=== PATIENT | male | born 1965 | race Caucasian/White ===

== ENCOUNTER 2023-12-24 07:57 | Emergency (ER) | payer MEDICARE ==
[~2023-12-24] VITALS: Ht 177.8 cm; Wt 95.0 kg
[2023-12-24 08:07] VITALS: BP 174/77; PULSE 71; RESP 18; TEMP 97.8; O2SAT 98
== END 2023-12-24 20:30 | disposition left against medical advice (07) ==
LOC: ER 07:58
DX: S00.81XA Abrasion of other part of head, initial encounter (principal); X58.XXXA Exposure to other specified factors, initial encounter; Y93.89 Activity, other specified; Y92.89 Other specified places as the place of occurrence of the external cause; Y99.8 Other external cause status

== ENCOUNTER 2024-04-15 10:58 | Inpatient (IN) | payer BC ==
[~2024-04-15] VITALS: Ht 177.8 cm; Wt 98.2 kg
[2024-04-15] MEDS: aspirin 81mg tab.chew PO ONE ×2 (11:07→11:08)
[2024-04-15] MEDS: nitroGLYCERIN 0.4mg SUBLingual tab SL PRN ×2 (11:08→11:12)
[2024-04-15 11:22] LABS: BASOPHILS # (AUTO) 0.1 X10'3 (0-0.2); BASOPHILS % (AUTO) 0.6 % (0-1); EOSINOPHILS # (AUTO) 0.3 X10'3 (0-0.9); EOSINOPHILS % (AUTO) 3.1 % (0-6); HEMATOCRIT 43.5 % (42.0-52.0); LYMPHOCYTES # (AUTO) 3.4 X10'3 (1.1-4.8); LYMPHOCYTES % (AUTO) 41.7 % (21-51); MEAN CORPUSCULAR HEMOGLOBIN 30.8 PG (27.0-31.0); MEAN CORPUSCULAR HGB CONC 34.6 g/dL (33.0-36.5); MEAN PLATELET VOLUME 8.2 FL (7.4-10.4); MONOCYTES # (AUTO) 0.6 X10'3 (0-0.9); MONOCYTES % (AUTO) 7.6 % (2-12); NEUTROPHILS # (AUTO) 3.8 X10'3 (1.8-7.7); PLATELET COUNT 369 X10'3 (140-440); RED BLOOD COUNT 4.88 X10'6 (4.70-6.10); RED CELL DISTRIBUTION WIDTH 12.7 % (11.5-14.5); WHITE BLOOD COUNT 8.1 X10'3 (4.5-11.0)
[2024-04-15 11:36] LABS: ALANINE AMINOTRANSFERASE 68 U/L (12-78); ALBUMIN 4.2 G/DL (3.4-5.0); ALBUMIN/GLOBULIN RATIO 1.4 (1.1-1.5); ALKALINE PHOSPHATASE 81 IU/L (46-116); ANION GAP 9 (8-16); APTT 27 SECONDS (22-32); ASPARTATE AMINO TRANSFERASE 30 U/L (10-37); BILIRUBIN,TOTAL 0.7 MG/DL (0.1-1.0); BLOOD UREA NITROGEN 10 MG/DL (7-18); CHLORIDE 104 MMOL/L (99-107); CREATININE 1.25 MG/DL (0.60-1.10); GLUCOSE 125 MG/DL (70-104); POTASSIUM 3.9 MMOL/L (3.5-5.1); PROTHROMBIN TIME 10.6 SECONDS (9.0-12.0); SODIUM 141 MMOL/L (135-145); TOTAL PROTEIN 7.3 G/DL (6.4-8.2); eCRCL 64 ML/MIN; eGFR 59 ML/MIN
[2024-04-15 11:45] LABS: PRO BRAIN NATRIURETIC PEPTIDE 92 PG/ML (0-125)
[2024-04-15] MEDS: morphine 4 MG/ML inj SYRINge IV ONE (11:58)
[2024-04-15] MEDS ORDERED: heparin 10,000 units/1 ML INJ IV PRN (12:25)
[2024-04-15] MEDS ORDERED: nitroGLYCERIN-Tridil 50MG/D5W 250 ML IV PRN (12:25)
[2024-04-15] MEDS ORDERED: heparin 10,000 units/1 ML INJ IV ONE (12:25)
[2024-04-15] MEDS ORDERED: HYDROcodone/acetaminophen 10/325mg tab PO PRN (12:40)
[2024-04-15] MEDS ORDERED: acetaminophen 325mg tablet PO PRN (12:40)
[2024-04-15] MEDS: PERFLUTREN PROTEIN-A MICROSPHR (Optison) 0.22 MG/ML 3ML VIAL IV ONE (12:40)
[2024-04-15] MEDS ORDERED: HYDROcodone/acetaminophen 5mg/325mg tablet PO PRN (12:40)
[2024-04-15] MEDS ORDERED: magnesium hydroxide 30ml (MOM) UD suspension PO PRN (12:40)
[2024-04-15] MEDS ORDERED: magnesium Cl slow-release 64mg tablet PO PRN (12:40)
[2024-04-15] MEDS ORDERED: potassium Cl 40MEQ/1/2NS 520ml 520 ML IV PRN (12:40)
[2024-04-15] MEDS ORDERED: ondansetron/PF 4mg/2ml inj IV PRN (12:40)
[2024-04-15] MEDS ORDERED: mag hydrox/Alum hydrox/simeth 30ml oral suspension PO PRN (12:40)
[2024-04-15] MEDS ORDERED: magnesium sulf-water 2g/50mL 50 ML IV PRN (12:40)
[2024-04-15] MEDS ORDERED: potassium Cl 20 mEq SR tablet PO PRN ×2 (12:40)
[2024-04-15] MEDS ORDERED: morphine 2 MG/ML inj. syringe IV PRN ×2 (12:40)
[2024-04-15] MEDS: MESSAGE TO NURSING IV ONE (12:45)
[2024-04-15 13:14] LABS: MAGNESIUM 1.9 MG/DL (1.5-2.4)
[2024-04-15] MEDS: heparin 25,000 UNIT/250ml bag 250 ML IV PRN (13:40)
[2024-04-15] MEDS: heparin 10,000 units/1 ML INJ IV ONE (13:42)
[2024-04-15 14:23] LABS: HEMOGLOBIN A1C 6.4 % (4.5-6.2)
[2024-04-15] MEDS ORDERED: metoprolol tartrate 1mg/ml inj IV PRN (16:55)
[2024-04-15] MEDS: losartan 50mg tablet PO SCH (16:55)
[2024-04-15] MEDS ORDERED: nitroGLYCERIN 0.4mg SUBLingual tab SL PRN (16:55)
[2024-04-15] MEDS ORDERED: aminophylline 250mg/10ml inj. IV PRN (16:55)
[2024-04-15] MEDS: INSULIN LISPRO 100 UNIT/ML INSULN.PEN MULTI-DOSE SQ SCH (17:00)
[2024-04-15] MEDS ORDERED: DEXTROSE 15 GM of carb/4 tabs (each vial/BOTTLE has 4 tablets) PO PRN ×2 (17:00)
[2024-04-15] MEDS: normal saline 1000ml 1,000 ML IV SCH (17:45)
[2024-04-15] MEDS: pantoprazole 40mg Tablet.DR PO SCH (17:55)
[2024-04-15] MEDS: metoprolol succinate 25mg (24-HOUR) SR. Tablet PO SCH (17:56)
[2024-04-15] MEDS: atorvastatin 20mg tablet PO SCH (17:56)
[2024-04-15 17:57] LABS: BILIRUBIN,URINE NEGATIVE (Neg); CLARITY,URINE CLEAR (Clear); COLOR,URINE YELLOW (Yellow); GLUCOSE, URINE NEGATIVE (Neg); KETONES,URINE NEGATIVE (Neg); LEUKOCYTE ESTERASE ,URINE NEGATIVE (Neg); NITRITES, URINE NEGATIVE (Neg); OCCULT BLOOD,URINE NEGATIVE (Neg); PROTEIN,URINE NEGATIVE (Neg)
[2024-04-15 18:05] LABS: UA COLLECTION TYPE NON-SPECIFIED
[2024-04-15] MEDS: aspirin 81mg, enteric-coated 1 TAB TABLET.DR PO SCH (19:00)
[2024-04-15] MEDS ORDERED: heparin, porcine 5000 units/ml vial SQ SCH (20:00)
[2024-04-15] MEDS: docusate sod 100mg capsule PO SCH (20:00)
[2024-04-15] MEDS: insulin glargine (Lantus) pen - multi-dose SQ SCH (21:00)
[2024-04-15] MEDS: heparin, porcine 5000 units/ml vial SQ SCH (22:38)
[2024-04-16] VITALS (13 sets, daily range): BP systolic 118–157; BP diastolic 68–80; PULSE 56–85; RESP 15–18; TEMP 97.8–98.4; O2SAT 95–98
[2024-04-16 08:33] LABS: BASOPHILS % (AUTO) 0.6 % (0-1); EOSINOPHILS # (AUTO) 0.2 X10'3 (0-0.9); EOSINOPHILS % (AUTO) 2.8 % (0-6); HEMATOCRIT 43.4 % (42.0-52.0); HEMOGLOBIN 14.9 g/dl (14.0-17.9); LYMPHOCYTES # (AUTO) 2.1 X10'3 (1.1-4.8); LYMPHOCYTES % (AUTO) 32.3 % (21-51); MEAN CORPUSCULAR HEMOGLOBIN 30.8 PG (27.0-31.0); MEAN CORPUSCULAR HGB CONC 34.3 g/dL (33.0-36.5); MEAN CORPUSCULAR VOLUME 89.7 FL (78-98); MEAN PLATELET VOLUME 8.4 FL (7.4-10.4); MONOCYTES # (AUTO) 0.5 X10'3 (0-0.9); MONOCYTES % (AUTO) 7.6 % (2-12); NEUTROPHILS # (AUTO) 3.7 X10'3 (1.8-7.7); NEUTROPHILS % (AUTO) 56.7 % (42-75); PLATELET COUNT 313 X10'3 (140-440); RED BLOOD COUNT 4.84 X10'6 (4.70-6.10); RED CELL DISTRIBUTION WIDTH 12.7 % (11.5-14.5); WHITE BLOOD COUNT 6.5 X10'3 (4.5-11.0)
[2024-04-16 08:47] LABS: ALANINE AMINOTRANSFERASE 62 U/L (12-78); ALBUMIN 3.6 G/DL (3.4-5.0); ALBUMIN/GLOBULIN RATIO 1.2 (1.1-1.5); ALKALINE PHOSPHATASE 63 IU/L (46-116); ANION GAP 7 (8-16); ASPARTATE AMINO TRANSFERASE 32 U/L (10-37); BILIRUBIN,TOTAL 0.7 MG/DL (0.1-1.0); BLOOD UREA NITROGEN 12 MG/DL (7-18); BUN/CREATININE RATIO 14.6 (10.0-20.0); CALCIUM 8.7 MG/DL (8.5-10.1); CHLORIDE 107 MMOL/L (99-107); CHOL/HDL RATIO 3.3 (0.00-4.99); CHOLESTEROL 149 MG/DL (0-200); CREATININE 0.82 MG/DL (0.60-1.10); GLUCOSE 124 MG/DL (70-104); HDL CHOLESTEROL 45 MG/DL (35-60); LDL CHOLESTEROL 79 MG/DL (50-100); MAGNESIUM 1.9 MG/DL (1.5-2.4); POTASSIUM 3.9 MMOL/L (3.5-5.1); SODIUM 139 MMOL/L (135-145); TOTAL CARBON DIOXIDE 25.1 MMOL/L (24-32); TOTAL PROTEIN 6.5 G/DL (6.4-8.2); TRIGLYCERIDES 215 MG/DL (20-135); eCRCL 98 ML/MIN; eGFR > 90 ML/MIN
[2024-04-16] MEDS: regadenoson 0.4mg/5ml syringe IV PRN (10:46)
[2024-04-16] MEDS ORDERED: AMLO5TAB16 PO (11:08)
[2024-04-16] MEDS ORDERED: ATOR10TA70 PO (11:08)
[2024-04-16] MEDS ORDERED: PANT40TA54 PO (11:08)
[2024-04-16] MEDS ORDERED: VALS160T30 PO (11:08)
[2024-04-16] MEDS: OMEGA-3/DHA/EPA/FISH OIL 1 EACH CAPSULE.DR PO SCH (16:42)
[2024-04-17 02:00] VITALS: BP 142/88; PULSE 67; RESP 16; TEMP 98; O2SAT 96
[2024-04-17] MEDS ORDERED: FENO48TA10 PO (07:35)
[2024-04-17] MEDS ORDERED: ATOR20TA66 PO (07:35)
[2024-04-17] MEDS ORDERED: OMEG1CAP46 PO (07:35)
[2024-04-17 07:39] LABS: BASOPHILS % (AUTO) 0.6 % (0-1); EOSINOPHILS # (AUTO) 0.2 X10'3 (0-0.9); EOSINOPHILS % (AUTO) 3.2 % (0-6); HEMATOCRIT 42.3 % (42.0-52.0); HEMOGLOBIN 14.6 g/dl (14.0-17.9); LYMPHOCYTES # (AUTO) 2.5 X10'3 (1.1-4.8); LYMPHOCYTES % (AUTO) 39.3 % (21-51); MEAN CORPUSCULAR HEMOGLOBIN 31.1 PG (27.0-31.0); MEAN CORPUSCULAR HGB CONC 34.6 g/dL (33.0-36.5); MEAN CORPUSCULAR VOLUME 89.7 FL (78-98); MEAN PLATELET VOLUME 8.2 FL (7.4-10.4); MONOCYTES # (AUTO) 0.4 X10'3 (0-0.9); NEUTROPHILS # (AUTO) 3.2 X10'3 (1.8-7.7); NEUTROPHILS % (AUTO) 49.9 % (42-75); PLATELET COUNT 302 X10'3 (140-440); RED BLOOD COUNT 4.71 X10'6 (4.70-6.10); RED CELL DISTRIBUTION WIDTH 12.7 % (11.5-14.5); WHITE BLOOD COUNT 6.4 X10'3 (4.5-11.0)
[2024-04-17] MEDS ORDERED: METO-395 PO (07:43)
[2024-04-17] MEDS ORDERED: ASPI81TA53 PO (07:43)
[2024-04-17 08:00] VITALS: RESP 16; O2SAT 97
[2024-04-17] MEDS: losartan 50mg tablet PO SCH (08:00)
[2024-04-17] MEDS ORDERED: pantoprazole 40mg Tablet.DR PO SCH (08:00)
[2024-04-17] MEDS: atorvastatin 10mg tablet PO SCH (08:00)
[2024-04-17 08:02] LABS: ALANINE AMINOTRANSFERASE 60 U/L (12-78); ALBUMIN 3.6 G/DL (3.4-5.0); ALBUMIN/GLOBULIN RATIO 1.2 (1.1-1.5); ALKALINE PHOSPHATASE 65 IU/L (46-116); ANION GAP 7 (8-16); ASPARTATE AMINO TRANSFERASE 25 U/L (10-37); BILIRUBIN,TOTAL 0.8 MG/DL (0.1-1.0); BLOOD UREA NITROGEN 12 MG/DL (7-18); BUN/CREATININE RATIO 12.9 (10.0-20.0); CALCIUM 8.5 MG/DL (8.5-10.1); CHLORIDE 106 MMOL/L (99-107); CREATININE 0.93 MG/DL (0.60-1.10); GLUCOSE 119 MG/DL (70-104); SODIUM 141 MMOL/L (135-145); TOTAL CARBON DIOXIDE 27.7 MMOL/L (24-32); TOTAL PROTEIN 6.5 G/DL (6.4-8.2); eCRCL 86 ML/MIN; eGFR 83 ML/MIN
[2024-04-17 09:50] VITALS: PULSE 69
[2024-04-17] MEDS: amLODIPine 5mg tablet PO SCH (09:50)
[2024-04-17] MEDS: aspirin 81mg tab.chew PO SCH (09:51)
[2024-04-17] MEDS: fenofibrate 48mg tablet PO SCH (10:40)
== END 2024-04-17 12:35 | disposition home or self-care (01) | DRG 311 ==
LOC: ER 10:58 → ED HOLD 12:43 → PCU 3S 04-16 08:51
PROVIDERS: ADMIT Family Medicine; ATTEND Family Medicine
DX: I20.9 Angina pectoris, unspecified (principal); N17.0 Acute kidney failure with tubular necrosis; E11.9 Type 2 diabetes mellitus without complications; I10 Essential (primary) hypertension; K21.9 Gastro-esophageal reflux disease without esophagitis; E78.1 Pure hyperglyceridemia; Z87.891 Personal history of nicotine dependence; Z90.5 Acquired absence of kidney
CPT/HCPCS: 36415; 71045; 78452; 80053; 80061; 81003; 82948; 83036; 83735; 83880; 84484; 85025; 85610; 85730; 87081; 93005; 93017; 93306; 96374; 99291; A9500; G0378; J1644; J1815; J2270; J2785; J7030